=== PATIENT | female | born 1985 | race Caucasian/White ===

== ENCOUNTER 2021-03-07 13:01 | Outpatient (CLI) | payer BC, SELFPAY ==
--- NOTE | ~2021-03-07 | US_ITS ---
EXAMINATION: US FNA w image guidance DATE: 03/07/2021 13:50 INDICATION: Right thyroid nodule. TECHNIQUE: The procedure and its benefits and risks were discussed with the patient. Risks specifically discusse d included bleeding. The patient verbalized understanding of the risks and agreed to proceed. The nec k was prepped and draped in the usual sterile manner. 1% lidocaine was used for local anesthesia. 5 passes were made with a 25G needle into the lesion under ultrasound guidance. There were no immedia te complications. The patient understood to call the ordering physician for results after a week and a half and verbalized that understanding. FINDINGS: Grayscale ultrasound images demonstrate needles advanced into a 12 mm nodule in right thyroid lobe fo r biopsy. IMPRESSION: 1. Ultrasound-guided fine needle aspiration of a right thyroid nodule. Reviewed, dictated and finalized at location A.
== END 2021-03-07 13:02 | disposition home or self-care (01) ==
PROVIDERS: PCP Internal Medicine; Visit Provider Internal Medicine Endocrinology, Diabetes & Metabolism
DX: E04.2 Nontoxic multinodular goiter (principal)
CPT/HCPCS: 10005; 88173; 88305

== ENCOUNTER 2025-09-22 15:40 | Outpatient (CLI) | payer OTHER, SELFPAY ==
--- NOTE | ~2025-09-22 | MR_ITS ---
EXAMINATION: MR hip RT wo con DATE: 09/22/2025 16:30 INDICATION: Right hip pain TECHNIQUE: Magnetic resonance imaging (MRI) of the right hip was performed without intravenous contrast. Sequences included full-field axial PD-weighted FS FSE and T1-weighted FSE, coronal of the pelvis with PD-weighted FS FSE, T2- weighted FSE and T1-weighted FSE, small field of view of the right hip with axial PD-weighted FS FSE, sagittal PD-weighted FS FSE, coronal PD-weighted FS FSE and coronal T2 weighted FSE. Additional radial T1-weighted FGR oriented orthogonal to the acetabular rim were obtained for evaluation of the labrum. COMPARISON: None FINDINGS: Bones/labrum/cartilage: Alignment is normal. Moderate lower lumbar spondylosis. T1 hyperintense hemangioma at L3. Low signal intensity right supra-acetabular bone island. Marrow signal is otherwise normal. There is a small tear at the superolateral right acetabular labrum. There is mild right hip osteoarthritis with mild part ial-thickness cartilage loss without degenerative subchondral changes at the superior to superolateral aspect of the joint spaces and distal partial- thickness cartilage loss with mild subarticular edema-like signal change at the posterior inferior aspect of the femoral head.. Fluid: Symmetric physiologic amount of fluid within both hip joints. Small amount of likely physiologic free fluid in the pelvis. No bursitis or other abnormal fluid collections. Soft tissues: Normal and symmetric muscle bulk and signal in the pelvis and visualized proximal thighs. The iliopsoas, gluteal and proximal hamstring tendons are normal. 4.9 cm left ovarian cyst. Limited evaluation of visceral organs of the pelvis is otherwise unremarkable. No pathologically enlarged pelvic/inguinal lymphadenopathy. IMPRESSION: 1. Mild right hip osteoarthritis with small tear at the superolateral right acetabular labrum. 2. 5 cm left ovarian cyst. Reviewed, dictated and finalized at location A. IMPRESSION: 1. Mild right hip osteoarthritis with small tear at the superolateral right christal tabular labrum. 2. 5 cm left ovarian cyst.
== END 2025-09-22 15:41 | disposition home or self-care (01) ==
LOC: MICIMG 15:41
PROVIDERS: PCP Internal Medicine; Visit Provider Clinical Nurse Specialist
DX: M16.12 Unilateral primary osteoarthritis, left hip (principal); S73.191A Other sprain of right hip, initial encounter; X58.XXXA Exposure to other specified factors, initial encounter; N83.202 Unspecified ovarian cyst, left side; M25.551 Pain in right hip; G89.29 Other chronic pain
CPT/HCPCS: 73721